=== PATIENT | female | born 1980 | race Caucasian/White ===

== ENCOUNTER 2017-10-31 10:52 | Emergency (ER) | payer OTHER ==
[~2017-10-31] VITALS: Ht 157.5 cm; Wt 56.7 kg
[2017-10-31] MEDS ORDERED: LEVOTHYROXINE50 MCG PO (11:27)
[2017-10-31] MEDS ORDERED: SERTRALINE HCL100 MG PO (11:28)
[2017-10-31 11:40] LABS: ABSOLUTE BASOPHIL COUNT 0 /CUMM (0.0-0.2); ABSOLUTE EOSINOPHIL COUNT 0.1 /CUMM (0.0-0.7); ABSOLUTE GRANULOCYTE CT 1.9 /CUMM (1.4-6.5); ABSOLUTE MONOCYTE COUNT 0.5 /CUMM (0.10-0.60); BASOPHIL % 0.3 % (0.0-2.0); GRANULOCYTE % 54.3 % (42.2-75.2); HEMATOCRIT 35.5 % (37-47); MEAN CORPUSCULAR HGB 30.5 PG (27.0-31.0); MEAN CORPUSCULAR HGB CONC 33.7 G/DL (33.0-37.0); MEAN CORPUSCULAR VOLUME 90.6 FL (81.0-99.0); MEAN PLATELET VOLUME 7.8 FL (7.4-10.4); PLATELET COUNT 258 /CUMM (130-400); RBC DISTRIBUTION WIDTH 14.7 % (11.5-14.5); RED BLOOD CELL CT 3.92 /CUMM (4.20-5.40); WHITE BLOOD CELL COUNT 3.5 /CUMM (4.8-10.8)
--- NOTE | 2017-10-31 13:44 | ED GI/GU/ABDOMINAL COMPLAINT ---
History of Present Illness General Chief Complaint: General Adult Stated Complaint: NOT FEELING WELL Source: patient Exam Limitations: no limitations Vital Signs & Intake/Output Vital Signs & Intake/Output Vital Signs Date Time Temp Pulse Resp B/P B/P Pulse O2 O2 Flow FiO2 Mean Ox Delivery Rate 10/31 1627 98.1 62 18 108/59 98 Room Air 10/31 1626 98.1 10/31 1350 98.3 63 18 108/64 99 Room Air 10/31 1102 98.6 76 16 115/84 99 Room Air Room Air Allergies Coded Allergies: No Known Allergies (10/31/17) Reconcile Medications Levothyroxine Sodium 50 MCG TABLET 1 TAB PO DAILY HYPOTHYROID (Reported) Ondansetron (Zofran Odt) 4 MG TAB.RAPDIS 1 TAB SL TID PRN NAUSEA Sertraline HCl 100 MG TABLET 1 TAB PO DAILY DEPRESSION (Reported) Triage Note: PT TO TRIAGE FOR FEELING GENERAL MALAISE. PT HAS N/V/D FOR 4 HOURS EARLIER THIS WEEK AND WAS DX WITH FOOD POSIONING. [facility] BUT STILL FEELS UNWELL. DENIES FEVERS. DENIES VOMITJNG OR DIARRHEA FOR 2 DAYS. PT HAS BEEN TAKING ZOFRAN AND HAS BEEN ABLE TO HOLD DOWN FLUIDS Triage Nurses Notes Reviewed? yes LMP (ages 10-50): unknown ? N Is pt currently ? No Onset: Abrupt Duration: day(s): (3), changing over time, continues in ED Timing: single episode today Quality/Severity: cramping Severity Numbers: 5 Location: generalized abdomen Radiation: no radiation Activities at Onset: none Prior Abdominal Problems: similar symptoms (IBS?) Past Sexual History: Unobtainable at this time No Modifying Factors: none Associated Symptoms: abdominal pain, nausea/vomiting HPI: 37 YEAR OLD FEMALE HX OF DEPRESSION POSSIBLE IBS PRESENTS FOR EVAL OF NAUSEA ABDOMINAL PAIN WEAKNESS MALAISE the past 4 days. Patient states symptoms started 4 days ago with nausea vomiting and abdominal pain. She was evaluated by her primary care doctor diagnosed with food poisoning. She was given some IV fluids. She reports that the nausea and vomiting have improved but she still feels very weak and tired. She has not been eating or drinking very much. She denies diarrhea fever chest pain shortness of breath recent antibiotic sick contacts recent travel. No recent abdominal surgeries. She is not taking any medicine for pain. (Black PA,Corwin) Past History Travel History Traveled to [place] past 21 day No Medical History Any Pertinent Medical History? see below for history Neurological: NONE EENT: NONE Cardiovascular: NONE Respiratory: NONE Gastrointestinal: NONE Hepatic: NONE Renal: NONE Musculoskeletal: NONE Psychiatric: depression, EATING DISORDER Endocrine: Suzi's thyroiditis Surgical History Surgical History: non-contributory Psychosocial History What is your primary language Malay Tobacco Use: Quit >30 days ago ETOH Use: occasional use Illicit Drug Use: denies illicit drug use Family History Hx Contributory? No (Corwin Barrientos) Review of Systems Review of Systems Constitutional: Reports: malaise, weakness. EENTM: Reports: no symptoms. Respiratory: Reports: no symptoms. Cardiovascular: Reports: no symptoms. GI: Reports: see HPI, abdominal pain, nausea, vomiting. Genitourinary: Reports: no symptoms. Musculoskeletal: Reports: no symptoms. Skin: Reports: no symptoms. Neurological/Psychological: Reports: no symptoms. Hematologic/Endocrine: Reports: no symptoms. Immunologic/Allergic: Reports: no symptoms. All Other Systems: Reviewed and Negative (Corwin Barrientos) Physical Exam Physical Exam General Appearance: well developed/nourished, no apparent distress, alert, awake Head: atraumatic, normal appearance Eyes: Bilateral: normal appearance, PERRL, EOMI, normal inspection. Ears, Nose, Throat, Mouth: hearing grossly normal, moist mucous membrane Neck: normal inspection, supple, full range of motion Respiratory: normal breath sounds, chest non-tender, no respiratory distress, lungs clear Cardiovascular: regular rate/rhythm, normal peripheral pulses Peripheral Pulses: 2+ radial (R), 2+ radial (L) Gastrointestinal: normal bowel sounds, soft, no organomegaly, tenderness (LLQ) Back: normal inspection, normal range of motion, no vertebral tenderness Extremities: normal range of motion Neurologic/Psych: no motor/sensory deficits, awake, alert, oriented x 3, normal gait, normal mood/affect Skin: intact, normal color, warm/dry Core Measures ACS in differential dx? No Sepsis Present: No Sepsis Focused Exam Completed? No (Corwin Barrientos) Progress Differential Diagnosis: appendicitis, biliary colic, bowel obstruction, cholecystitis, diverticulitis, gastritis, inflamm bowel dis, intrauterine , kidney stone, ovarian cyst, ovarian torsion, pancreatitis, PID/ cervicitis, peptic ulcer, PUD/GERD, perforated viscous, SBO, UTI/pyelo Plan of Care: Orders Procedure Date/time Status LACTIC ACID 10/31 1535 Complete Add-on Test (ER Only) 10/31 1504 Active Add-on Test (ER Only) 10/31 1433 Active CULTURE,URINE 10/31 1241 Active URINALYSIS 10/31 111 Complete MAGNESIUM 10/31 111 Complete LIPASE 10/31 111 Complete HUMAN BETA HCG SCREEN 10/31 111 Complete C-REACTIVE PROTEIN 10/31 111 Complete COMPREHENSIVE METABOLIC PANEL 10/31 111 Complete CBC WITHOUT DIFFERENTIAL 10/31 111 Complete Current Medications Sig/Ta Start time Last Medication Dose Stop Time Status Admin Acetaminophen 1,000 MG ONCE ONE 10/31 1615 CAN (Ofirmev) 10/31 1629 N/A 1 UNIT (No Carrier) Laboratory Tests 10/31/17 1540: Lactic Acid 0.6 L 10/31/17 1241: Urine Color YEL, Urine Clarity HAZY H, Urine pH 6.5, Ur Specific Hundred 1.020, Urine Protein NEG, Urine Ketones TRACE H, Urine Nitrite NEG, Urine Bilirubin NEG, Urine Urobilinogen >=8.0 H, Ur Leukocyte Esterase SMALL H, Ur Microscopic SEDIMENT EXAMINED, Urine WBC 10-15 H, Ur Epithelial Cells MANY H, Urine Bacteria MOD H, Urine Mucus FEW, Urine Hemoglobin NEG, Urine Glucose NEG 10/31/17 1130: Anion Gap 4 L, Estimated GFR > 60, BUN/Creatinine Ratio 18.0, Glucose 100 H, Calcium 8.8, Magnesium 1.8, Total Bilirubin 0.2, AST 16, ALT 24, Alkaline Phosphatase 53, C-Reactive Prot, Quant 1.5 H, Total Protein 5.9 L, Albumin 3.5 , Globulin 2.4, Albumin/Globulin Ratio 1.5, Lipase 150, Total Beta HCG NEGATIVE, CBC w Diff NO MAN DIFF REQ, RBC 3.92 L, MCV 90.6, MCH 30.5, MCHC 33.7, RDW 14.7 H, MPV 7.8, Gran % 54.3, Lymphocytes % 28.5, Monocytes % 14.9 H, Eosinophils % 2.0, Basophils % 0.3, Absolute Granulocytes 1.9, Absolute Lymphocytes 1.0 L, Absolute Monocytes 0.5, Absolute Eosinophils 0.1, Absolute Basophils 0 Microbiology 08/03 1241 URINE ROUT: Urine Culture - RECD Patient is here for evaluation of weakness and lethargy abdominal pain nausea and vomiting. Several days ago she was diagnosed with food poisoning. He nausea vomiting have improved but her pain has persisted. She has no diarrhea no fever her vital signs are stable. Labs CT scan ordered patient medicated with fluids Toradol and Zofran. Blood work overall is unremarkable. CT scan of the abdomen and pelvis showed nonspecific colitis versus infection/inflammatory disorder. Patient has no history of IBD. CT scan all show showed evidence of an enlarged left ovary. Patient reports persistent paiN. In the left lower quadrant and ultrasound was ordered patient medicated with IV Tylenol. Ultrasound is negative. Patient has seen gastroenterology in the past related to her possible IBS diagnosis. Advised her to follow-up with hER doctor as soon as possible. Patient is feeling better after Tylenol and Toradol. Patient ALready has a prescription for Bentyl. She was also given prescriptions for Zofran. Discussed return precautions in detail. Increase fluidseat bland foods patient agrees the plan Diagnostic Imaging: Viewed by Me: CT Scan. Discussed w/RAD: CT Scan. Radiology Impression: PATIENT: CK CAUSEY PRESENT AGE: 37 PATIENT ACCOUNT NO: [id number] : 79 LOCATION: [facility] ORDERING PHYSICIAN: Corwin CASTLE SERVICE DATE: 10/31/17 EXAM TYPE: CAT - CT ABD & PELVIS W IV CONTRAST EXAMINATION: CT ABDOMEN AND PELVIS WITH CONTRAST CLINICAL INFORMATION: 37-year-old female with left lower quadrant abdominal pain, nausea and vomiting for 3 days. COMPARISON: None TECHNIQUE: Multidetector volumetric imaging was performed of the abdomen and pelvis following IV administration of 95 mL of Optiray 320 intravenous contrast. Sagittal and coronal reformatted images were obtained on the technologist's workstation. DLP: 253.07 mGy-cm FINDINGS: LUNG BASES: The visualized lung bases are unremarkable. LIVER, GALLBLADDER, AND BILIARY TREE: The liver is normal in size, shape, and attenuation. No focal hepatic lesion or biliary ductal dilatation is present. The gallbladder is unremarkable with no evidence of radiopaque gallstones, gallbladder wall thickening, or obvious pericholecystic inflammatory changes. PANCREAS: Unremarkable. SPLEEN: Unremarkable. ADRENAL GLANDS: Unremarkable. KIDNEYS AND URETERS: The kidneys are normal in size, shape, and attenuation. No hydronephrosis, hydroureter, or calculi seen. No perinephric stranding. BLADDER: Unremarkable. GASTROINTESTINAL TRACT: Nonspecific apparent long segment thickening of the distal part of the transverse colon, splenic flexure, the entire descending colon and proximal sigmoid colon is noted, may represent physiologic changes secondary to suboptimal distention, early subtle changes of nonspecific colitis, infection and less likely to be ischemia. ABDOMINAL WALL: No significant hernia is appreciated. LYMPH NODES: Normal. VASCULAR: Unremarkable. PELVIC VISCERA: The uterus is retroverted. Bilateral adnexal hypodensities are present, most consistent with enlarged follicle-containing otherwise normal ovary. Trace amount of free fluid is noted. There is no free air seen. OSSEOUS STRUCTURES: Solitary sub-5 mm focal area of sclerosis is noted along the posterior inferior part of the right acetabulum, most consistent with a bone island. Otherwise unremarkable. IMPRESSION: 1. Nonspecific apparent long segment thickening of the distal part of the transverse colon, splenic flexure, entire descending colon and proximal sigmoid colon is noted, may represent physiologic changes secondary to suboptimal distention versus early subtle changes of nonspecific colitis, infection or less likely to be ischemia. 2. Retroverted uterus and bilateral adnexal hypodensities, consistent with enlarged follicle-containing otherwise normal ovaries. 3. Trace amount of free fluid within the pelvis. DICTATED BY: Cr Mike MD DATE/TIME DICTATED:10/31/171320 WEIR FISHERMAN:TAMERA DATE/TIME TRANSCRIBED:10/31/171320 CONFIDENTIAL, DO NOT COPY WITHOUT APPROPRIATE AUTHORIZATION. <Electronically signed in Other Vendor System> Initial ED EKG: none (Bhupinder CASTLE,Corwin) Departure Departure Disposition: HOME OR SELF CARE Condition: Stable Clinical Impression Primary Impression: Colitis Referrals: Aminata Alejo DO (PCP/Family) Additional Instructions: It is very important that YOU follow up with YOUr show girl as soon as possible for further evaluation and treatment. Continue Bentyl as needed for abdominal pain. Zofran for nausea. Drink plenty of fluids eat bland foods and high fiber foods. Monitor your symptoms return with any concerns. Please note that there might be incidental findings in your evaluation that are unrelated to the current emergency department visit. Please notify your primary care doctor about this emergency department visit in order to obtain and review all of the testing performed so that these incidental findings can be monitored as needed. If you had an x-ray performed, please understand that some fractures or other findings may not be seen on the initial set of x-rays. If your symptoms persist you might need a repeat set of x-rays to check for such a fracture. If you had a laceration evaluated, please understand that foreign bodies such as glass or wood may not be visible to the naked eye or on plain x-rays. If the wound becomes red, swollen, increasingly more painful or if there is any drainage from the wound, please have it reevaluated by a physician for the possibility of a retained foreign body. If you're unable to follow up as outlined in the discharge instructions please return to the emergency department. Thank you for choosing the [facility] Emergency Department for your care. It was a pleasure to serve you today. Departure Forms: Customer Survey General Discharge Information Prescriptions: Current Visit Scripts Ondansetron (Zofran Odt) 1 TAB SL TID PRN NAUSEA #15 TAB (Corwin Barrienots) PA/ANIMATION PRODUCER Co-Sign Statement Statement: ED Attending supervision documentation- [] I saw and evaluated the patient. I have also reviewed all the pertinent lab results and diagnostic results. I agree with the findings and the plan of care as documented in the PA's/ANIMATION PRODUCER's documentation. [X] I have reviewed the ED Record and agree with the PA's/ANIMATION PRODUCER's documentation. [] Additions or exceptions (if any) to the PAs/ANIMATION PRODUCER's note and plan are summarized below: [] (Deon Blackmon DO
--- NOTE | 2017-10-31 14:36 | CT SCAN REPORT ---
EXAMINATION: CT ABDOMEN AND PELVIS WITH CONTRAST CLINICAL INFORMATION: 37-year-old female with left lower quadrant abdominal pain, nausea and vomiting for 3 days. COMPARISON: None TECHNIQUE: Multidetector volumetric imaging was performed of the abdomen and pelvis following IV administration of 95 mL of Optiray 320 intravenous contrast. Sagittal and coronal reformatted images were obtained on the technologist's workstation. DLP: 253.07 mGy-cm FINDINGS: LUNG BASES: The visualized lung bases are unremarkable. LIVER, GALLBLADDER, AND BILIARY TREE: The liver is normal in size, shape, and attenuation. No focal hepatic lesion or biliary ductal dilatation is present. The gallbladder is unremarkable with no evidence of radiopaque gallstones, gallbladder wall thickening, or obvious pericholecystic inflammatory changes. PANCREAS: Unremarkable. SPLEEN: Unremarkable. ADRENAL GLANDS: Unremarkable. KIDNEYS AND URETERS: The kidneys are normal in size, shape, and attenuation. No hydronephrosis, hydroureter, or calculi seen. No perinephric stranding. BLADDER: Unremarkable. GASTROINTESTINAL TRACT: Nonspecific apparent long segment thickening of the distal part of the transverse colon, splenic flexure, the entire descending colon and proximal sigmoid colon is noted, may represent physiologic changes secondary to suboptimal distention, early subtle changes of nonspecific colitis, infection and less likely to be ischemia. ABDOMINAL WALL: No significant hernia is appreciated. LYMPH NODES: Normal. VASCULAR: Unremarkable. PELVIC VISCERA: The uterus is retroverted. Bilateral adnexal hypodensities are present, most consistent with enlarged follicle-containing otherwise normal ovary. Trace amount of free fluid is noted. There is no free air seen. OSSEOUS STRUCTURES: Solitary sub-5 mm focal area of sclerosis is noted along the posterior inferior part of the right acetabulum, most consistent with a bone island. Otherwise unremarkable. IMPRESSION: 1. Nonspecific apparent long segment thickening of the distal part of the transverse colon, splenic flexure, entire descending colon and proximal sigmoid colon is noted, may represent physiologic changes secondary to suboptimal distention versus early subtle changes of nonspecific colitis, infection or less likely to be ischemia. 2. Retroverted uterus and bilateral adnexal hypodensities, consistent with enlarged follicle-containing otherwise normal ovaries. 3. Trace amount of free fluid within the pelvis.
--- NOTE | 2017-10-31 15:54 | ULTRASOUND REPORT ---
EXAMINATION: ULTRASOUND PELVIC, COMPLETE CLINICAL INFORMATION: Left-sided pelvic pain. COMPARISON: CT abdomen pelvis 10/31/2017 TECHNIQUE: Transvaginal: Used to better visualize pelvic structures Transabdominal: Not adequate for visualization Spectral Doppler and color Doppler exam was utilized. LMP: 10/22/2017 FINDINGS: UTERUS: Unremarkable. Uterus measures 7.3 x 4.2 x 5.9 cm. The uterus is retroverted. Endometrial thickness 0.9 cm. Cervical length 2.5 cm. ADNEXA: Ovarian vascularity:Doppler demonstrates both arterial and venous vascular flow in the right and left ovary. No evidence of ovarian torsion. There are bilateral ovarian follicles. Largest follicle in the left ovary measuring 1.6 x 2.1 x 1.2 cm. Right Ovary: 2.8 x 1.6 x 2.3 cm. Volume 5.6 mL. Left Ovary: 3.4 x 1.7 x 2 cm. Volume 6.3 mL Cul-de-sac: Trace amount of fluid. IMPRESSION: Normal ultrasound of pelvis.
[2017-10-31] MEDS ORDERED: ZOFRAN ODT4 M1 SL (17:08)
[2017-10-31 17:30] VITALS: BP 98/55
== END 2017-10-31 17:32 ==
LOC: ERH 10:52
PROVIDERS: Physician Assistant Medical
DX: K52.9 Noninfective gastroenteritis and colitis, unspecified (principal); R11.2 Nausea with vomiting, unspecified; R10.9 Unspecified abdominal pain; R53.1 Weakness
CPT/HCPCS: 74177; 81001; 87086; 96361; 96374; 96375; J0131; J1885; J2405